=== PATIENT | female | born 1995 ===

== ENCOUNTER → 2016-05-12 | Outpatient (CLI) | payer OTHER ==
[~2016-05-12] MED LIST: ACET160S78 PO
[2016-05-16 01:40] LABS: CHLAMYDIA TRACH RNA*** NOT DETECTED (NOT DETECTED); GC (NEIS GONORRHOEAE)RNA** NOT DETECTED (NOT DETECTED)
== END | disposition home or self-care (01) ==
LOC: C.LABSPEC 17:56
PROVIDERS: ATTEND Obstetrics & Gynecology
DX: Z30.9 Encounter for contraceptive management, unspecified (principal)

== ENCOUNTER → 2016-12-14 | Outpatient (CLI) | payer OTHER ==
--- NOTE | 2016-12-14 11:17 | DIAGNOSTIC IMAGING REPORT ---
LEFT FINGER(S) MIN 2 VIEWS HISTORY: 21 years-old Female LEFT 4TH FINGER PAIN status post trauma COMPARISON: None available TECHNIQUE: 3 views of the left fourth finger FINDINGS: There is no acute fracture, dislocation or significant congestive changes. There is moderate soft tissue swelling about the fourth PIP joint without radiographic foreign body. IMPRESSION: Moderate soft tissue swelling about the fourth PIP joint without acute bony abnormality or radiopaque foreign body. The above report was generated using voice recognition software. It may contain grammatical, syntax or spelling errors. Electronically signed by: Koby Ribeiro M.D. 12/14/2016 11:16 AM Dictated Date/Time: 12/14/2016 11:15 AM
== END | disposition home or self-care (01) ==
LOC: C.RDSM 14:32
PROVIDERS: ATTEND Internal Medicine
DX: M79.645 Pain in left finger(s) (principal); M79.89 Other specified soft tissue disorders